=== PATIENT | male | born 1960 | race Caucasian/White ===

== ENCOUNTER 2017-03-04 15:00 | Emergency (ER) | payer BC, OTHER ==
[2017-03-04 15:20] VITALS: BP 158/93; PULSE 74; RESP 18; TEMP 98.2; O2SAT 95
--- NOTE | 2017-03-04 15:37 | EDPHY ---
H & P HPI/ROS: CHIEF COMPLAINT: Eyelid swelling History by patient HISTORY OF PRESENT ILLNESS: 56-year-old man with a history of factor 5 Leiden Coumadin presents complaining of pain in his left lower lid for the past 3 days. He says it has been tender and irritated today he noticed it was more swollen. He had some discharge on his eyelids when he woke up this morning. He denies any difficulty with his vision. He denies any trauma. There is no pain with extraocular movement. Upper lid is not involved. REVIEW OF SYSTEMS: As in HPI, and all other systems reviewed and are negative Smoking Status: Never smoked Physical Exam: General: Alert, well-appearing Head: Normocephalic, atraumatic EOMI bilaterally without pain Pupils: Equal round reactive to light Lids: Left lower lid with mild redness on the lateral edge, mild tenderness, no fluctuance or induration with mild puffiness under his left eye, upper lid not involved, right eye not involved Conjunctiva: Injected, positive scant purulent discharge Slit-lamp exam: Not performed Constitutional: Initial Vital Signs Temperature (C) 36.8 C 03/04/17 15:16 Heart Rate 74 03/04/17 15:16 Respiratory Rate 18 03/04/17 15:16 Blood Pressure 158/93 H 03/04/17 15:16 O2 Sat (%) 95 03/04/17 15:16 O2 Delivery Mode Room Air Allergies/Adverse Reactions: No Known Allergies Allergy (Unverified 03/04/17 15:12) Home Medications: Medication Instructions Recorded Warfarin Sodium [Coumadin 5MG (RX)] 5 mg PO DAILY16 #10 tab 12/10/12 Erythromycin 0.5% 1 sheila LEFTEYE QID #1 opht.oint 03/04/17 Lisinopril 03/04/17 MDM/Departure - [facility] ED Course/Re-evaluation: 56-year-old man presents with hordeolum on the left lower lid without complication. We discussed home care including applying warm compresses multiple times a day and he is prescribed topical erythromycin. He has an eye doctor he can follow up with if there is no improvement in the next days. - Depart Disposition: Home, Routine, Self-Care Clinical Impression: Hordeolum externum left lower eyelid Condition: Good Instructions: Eitan (ED) Additional Instructions: You were seen by Dr. Kat Diallo today. Apply warm compresses 3-4 times daily. Use topical antibiotics as prescribed. Follow up with her eye doctor if no improvement within 2-3 days. Return for any worsening or new concerns. Prescriptions: Erythromycin 0.5% 1 sheila TACO QID #1 opht.oint Referrals: RAZIA ROWLEY [Primary Care Provider] - As per Instructions
== END 2017-03-04 15:48 | disposition home or self-care (01) ==
LOC: CED 15:00
DX: H00.015 Hordeolum externum left lower eyelid (principal); Z79.01 Long term (current) use of anticoagulants